=== PATIENT | male | born 1960 | race Hispanic/Latino ===

== ENCOUNTER 2017-11-04 05:29 | Emergency (ER) | payer SELFPAY ==
[2017-11-04] MEDS ORDERED: MORPHINE SULFATE 4 MG/1ML SYG ONE (06:09)
[2017-11-04] MEDS ORDERED: KETOROLAC TROMETHAMINE 30MG/ML ONE (06:09)
[2017-11-04] MEDS ORDERED: SODIUM CHLORIDE 0.9% 1000ML 1,000 ML IV ONE (06:12)
[2017-11-04 06:51] LABS: BASOPHILS % (AUTO) 0.8 % (0.0-5.0); EOSINOPHILS % (AUTO) 2.2 % (0.0-8.0); HEMATOCRIT 47.2 % (42-54); LYMPHOCYTES % (AUTO) 26.5 % (21.0-51.0); MEAN CORPUSCULAR HEMOGLOBIN 32.2 pg (27.0-33.0); MEAN CORPUSCULAR VOLUME 94.6 fL (79-99); NEUTROPHILS % (AUTO) 62.5 % (40.0-77.0); NUCLEATED RED BLOOD CELLS 0.1 % (0.0-0.19); PLATELET COUNT (AUTO) 289 K/uL (130-400); RED BLOOD CELL COUNT(AUTO) 4.99 MIL/uL (4.50-6.20); RED CELL DISTRIBUTION WIDTH 12.9 % (11.0-15.5); WHITE BLOOD COUNT (AUTO) 7.2 K/uL (4.8-10.8)
[2017-11-04 06:58] LABS: POTASSIUM 3.8 mmol/L (3.5-5.1)
[2017-11-04 07:04] LABS: ALBUMIN 3.2 g/dL (3.5-5.0); BILIRUBIN,TOTAL 0.3 mg/dL (0.2-1.0); TOTAL PROTEIN, SERUM 6.9 g/dL (6.0-8.3)
[2017-11-04 07:39] LABS: HIGH SENSITIVITY CRP 22.45 mg/L (0.0-3.0)
[2017-11-04 08:17] LABS: ERYTHROCYTE SEDIMENTATION RATE 1 MM/HR (0-15)
== END 2017-11-04 08:39 | disposition home or self-care (01) ==
LOC: EDH 05:29
DX: S30.0XXA Contusion of lower back and pelvis, initial encounter (principal); M54.30 Sciatica, unspecified side; Z72.0 Tobacco use; W22.8XXA Striking against or struck by other objects, initial encounter; Y93.89 Activity, other specified; Y92.89 Other specified places as the place of occurrence of the external cause; Y99.8 Other external cause status
CPT/HCPCS: 36415; 72131; 72192; 80053; 85025; 85651; 86141; 96374; 96375; 99285; J1885; J2270; J7030

== ENCOUNTER 2021-09-14 15:34 | Emergency (ER) | payer SELFPAY ==
[~2021-09-14] VITALS: Ht 172.7 cm; Wt 88.5 kg
[2021-09-14] MEDS ORDERED: ADENOSINE 6MG VIAL IV ONE (15:47)
[2021-09-14] MEDS ORDERED: METOPROLOL TARTRATE 25 MG TAB ONE (15:51)
[2021-09-14] MEDS ORDERED: ASPIRIN 325MG TAB PO ONE (16:00)
[2021-09-14] MEDS ORDERED: 0.9%NACL 1000ML 1,000 ML IV ONE (16:00)
[2021-09-14] MEDS ORDERED: NITROGLYCERIN 0.4 MG SL TAB SL PRN (16:00)
[2021-09-14] MEDS ORDERED: METOPROLOL TARTRATE 50 MG TAB PO ONE ×2 (16:00)
[2021-09-14 16:08] LABS: BASOPHILS % (AUTO) 0.5 % (0.0-5.0); EOSINOPHILS % (AUTO) 0.9 % (0.0-8.0); HEMATOCRIT 55.7 % (42-54); LYMPHOCYTES % (AUTO) 16.5 % (21.0-51.0); MEAN CORPUSCULAR HGB CONC 34.1 g/dL (32.0-36.0); MEAN CORPUSCULAR VOLUME 93.9 fL (79-99); MONOCYTES % (AUTO) 6.5 % (3.0-13.0); NEUTROPHILS % (AUTO) 75.2 % (40.0-77.0); PLATELET COUNT (AUTO) 313 K/uL (130-400); RED BLOOD CELL COUNT(AUTO) 5.93 MIL/uL (4.50-6.20); RED CELL DISTRIBUTION WIDTH 12.7 % (11.0-15.5); WHITE BLOOD COUNT (AUTO) 10.3 K/uL (4.8-10.8)
[2021-09-14 16:20] LABS: POTASSIUM 3.6 mmol/L (3.5-5.1)
[2021-09-14 16:27] LABS: ALBUMIN 3.6 g/dL (3.5-5.0); BILIRUBIN,TOTAL 0.7 mg/dL (0.2-1.0); TOTAL PROTEIN, SERUM 7.5 g/dL (6.0-8.3)
[2021-09-14 16:34] LABS: B-TYPE NATRIURETIC PEPTIDE 23 pg/mL (0-100)
[2021-09-14] MEDS ORDERED: METO50TA9 PO (16:58)
[2021-09-14 17:41] VITALS: BP 119/78
== END 2021-09-14 17:43 | disposition home or self-care (01) ==
LOC: EDH 15:34
DX: I47.1 Supraventricular tachycardia (principal); F10.10 Alcohol abuse, uncomplicated; F14.90 Cocaine use, unspecified, uncomplicated; F17.200 Nicotine dependence, unspecified, uncomplicated; Z79.82 Long term (current) use of aspirin; Z79.899 Other long term (current) drug therapy
CPT/HCPCS: 36415; 71045; 80053; 82550; 83735; 83880; 84484; 85025; 93005 ×2; 96360; 99291; J0153; J7030

== ENCOUNTER 2024-05-23 08:24 | Emergency (ER) | payer BC ==
[~2024-05-23] VITALS: Ht 172.7 cm; Wt 90.7 kg
[~2024-05-23 08:24] MED LIST: METO50TA9 PO
[2024-05-23] MEDS: BACLOFEN 10 MG TABLET PO SCH (09:06)
[2024-05-23 09:12] VITALS: BP 142/88; PULSE 83; RESP 20; TEMP 97.9; O2SAT 99
[2024-05-23] MEDS: ketOROlac 15MG/ML VIAL (15MG/ML) IM ONE (09:35)
[2024-05-23 09:44] LABS: BASOPHILS # (AUTO) 0.06 K/uL (0.00-0.20); BASOPHILS % (AUTO) 0.6 % (0.0-5.0); HEMATOCRIT 49.8 % (42-54); IMMATURE GRANULOCYTE ABSOLUTE 0.07 K/uL (0-1); LYMPHOCYTES # (AUTO) 1.9 K/uL (1.0-4.8); MEAN CORPUSCULAR HEMOGLOBIN 30.8 pg (27.0-33.0); MEAN CORPUSCULAR HGB CONC 33.9 g/dL (32.0-36.0); MEAN CORPUSCULAR VOLUME 90.9 fL (79-99); MONOCYTES % (AUTO) 9.7 % (3.0-13.0); PLATELET COUNT (AUTO) 319 K/uL (130-400); RED BLOOD CELL COUNT(AUTO) 5.48 MIL/uL (4.50-6.20); RED CELL DISTRIBUTION WIDTH 12.6 % (11.0-15.5); WHITE BLOOD COUNT (AUTO) 10.1 K/uL (4.8-10.8)
[2024-05-23 09:52] LABS: CREATININE 0.8 mg/dL (0.5-1.3); POTASSIUM 4.4 mmol/L (3.5-5.1)
[2024-05-23] MEDS: ondanSETRON 4MG INJ IVP ONE (10:00)
[2024-05-23] MEDS: morPHINE 2 MG SYG IVP ONE (10:01)
== END 2024-05-23 10:11 | disposition home or self-care (01) ==
LOC: EDH 08:24
DX: G89.29 Other chronic pain (principal); M25.551 Pain in right hip; M54.31 Sciatica, right side; F17.200 Nicotine dependence, unspecified, uncomplicated; Z79.899 Other long term (current) drug therapy
CPT/HCPCS: 99284; 96374; 96375; 80048; 85025; 36415; 73502; 96372; J2270; J2405; J1885

== ENCOUNTER 2024-06-11 03:00 | Emergency (ER) | payer BC ==
[~2024-06-11] VITALS: Ht 172.7 cm; Wt 95.7 kg
[2024-06-11 03:28] VITALS: BP 153/89; PULSE 99; RESP 21; TEMP 98.5; O2SAT 95
[2024-06-11 03:46] LABS: BASOPHILS # (AUTO) 0.06 K/uL (0.00-0.20); BASOPHILS % (AUTO) 0.5 % (0.0-5.0); EOSINOPHILS # (AUTO) 0.07 K/uL (0.00-0.70); EOSINOPHILS % (AUTO) 0.5 % (0.0-8.0); HEMATOCRIT 48.1 % (42-54); IMMATURE GRANULOCYTE ABSOLUTE 0.15 K/uL (0-1); LYMPHOCYTES # (AUTO) 2.6 K/uL (1.0-4.8); LYMPHOCYTES % (AUTO) 20.5 % (21.0-51.0); MEAN CORPUSCULAR HEMOGLOBIN 30.1 pg (27.0-33.0); MEAN CORPUSCULAR HGB CONC 34.1 g/dL (32.0-36.0); MEAN CORPUSCULAR VOLUME 88.4 fL (79-99); MONOCYTES # (AUTO) 1.1 K/uL (0.1-1.0); MONOCYTES % (AUTO) 8.3 % (3.0-13.0); NEUTROPHILS # (AUTO) 8.8 K/uL (1.8-7.7); PLATELET COUNT (AUTO) 333 K/uL (130-400); RED BLOOD CELL COUNT(AUTO) 5.44 MIL/uL (4.50-6.20); RED CELL DISTRIBUTION WIDTH 12.4 % (11.0-15.5); WHITE BLOOD COUNT (AUTO) 12.8 K/uL (4.8-10.8)
[2024-06-11 03:50] LABS: CARBON DIOXIDE 27 mmol/L (21-32); CHLORIDE 102 mmol/L (101-111); CREATININE 0.7 mg/dL (0.5-1.3); GLOMERULAR FILTR. RATE CALC 104 mL/min (>90); GLUCOSE,RANDOM 118 mg/dL (70-105); POTASSIUM 3.9 mmol/L (3.5-5.1); SODIUM SERUM 137 mmol/L (136-145); UREA NITROGEN, BLOOD 8 mg/dL (7-18)
[2024-06-11 03:55] LABS: ALCOHOL, BLOOD < 3 mg/dL (0-10); CREATINE KINASE, TOTAL 60 U/L (21-232)
[2024-06-11 04:43] LABS: APPEARANCE,URINE CLEAR (CLEAR); BILIRUBIN,URINE NEGATIVE (NEGATIVE); COLOR,URINE LIGHT-YELLOW (YELLOW); GLUCOSE, URINE (UA) NEGATIVE (NEGATIVE); KETONES,URINE NEGATIVE (NEGATIVE); LEUKOCYTE ESTERASE ,URINE NEGATIVE Leu/uL (NEGATIVE); NITRATE,URINE NEGATIVE (NEGATIVE); OCCULT BLOOD,URINE SMALL (NEGATIVE); PH,URINE 5.5 (5.0-8.0); PROTEIN,URINE NEGATIVE (NEGATIVE); UROBILINOGEN,URINE 0.2 mg/dL (0.2-1.0)
[2024-06-11 04:49] LABS: ADD UA MICROSCOPIC YES
[2024-06-11 04:50] LABS: BACTERIA,URINE RARE /HPF (None Seen)
[2024-06-11] MEDS: LACTULOSE 20 GM/30 ML UDCUP PO ONE (05:03)
[2024-06-11] MEDS: ketOROlac 15MG/ML VIAL (15MG/ML) IV ONE (05:04)
[2024-06-11] MEDS: BisaCODYL 5 MG TABLET.DR PO ONE (05:04)
[2024-06-11] MEDS ORDERED: BISA-72 PO (05:14)
[2024-06-11] MEDS ORDERED: MAGN296S73 PO (05:14)
== END 2024-06-11 05:24 | disposition home or self-care (01) ==
LOC: EDH 03:00
DX: K59.00 Constipation, unspecified (principal); I47.10 Supraventricular tachycardia, unspecified; G89.29 Other chronic pain; M25.551 Pain in right hip; M54.30 Sciatica, unspecified side; F17.200 Nicotine dependence, unspecified, uncomplicated; I10 Essential (primary) hypertension; Z79.899 Other long term (current) drug therapy
CPT/HCPCS: 99284; 96374; 82550; 83735; 84484; 80048; 83690; 85025; 81001; 36415; 74018; 93005; J1885